=== PATIENT | female | born 1985 | race Caucasian/White ===

== ENCOUNTER 2018-04-01 08:28 | Outpatient (CLI) | payer OTHER | END 2018-04-01 08:29 | disposition home or self-care (01) | LOC: BICMAMMO 08:28 | PROVIDERS: ATTEND Family Medicine | DX: N63.10 Unspecified lump in the right breast, unspecified quadrant (principal) | CPT/HCPCS: 77066; G0279 ==

== ENCOUNTER 2018-09-22 07:57 | Outpatient (CLI) | payer OTHER ==
--- NOTE | 2018-09-22 10:33 | MRI ---
BRAIN MRI WITHOUT CONTRAST: Date: 09/22/18 COMPARISON: None. HISTORY: Swollen optic nerve. TECHNIQUE: Multiplanar, multisequence MR imaging of the brain provided without contrast. FINDINGS: Optic nerves and orbital contents are not optimally assessed on this examination. If further imaging assessment of these structures is clinically warranted, a contrast enhanced MRI utilizing an orbits p rotocol is recommended. The diffusion-weighted imaging demonstrates no evidence for acute infarction. The axial gradient echo imaging demonstrates no evidence for intracranial hemorrhage. Regional bone marrow signal intensity appears unremarkable on the T1-weighted imaging. Midline struct ures appear unremarkable. There is no midline shift, mass effect, or ventricular enlargement. Orbits and globes demonstrate a grossly unremarkable noncontrast enhanced appearance. The paranasal s inuses/mastoid air cells appear well aerated. IMPRESSION: Unremarkable noncontrast enhanced brain MRI. POS: [facility]
--- NOTE | 2018-09-22 10:36 | MRI ---
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 TECHNIQUE: Inferior saturation band applied at the base of the skull. 2D [id number] coronal slab acquisition of head. Source images and 3D MIP reconstructions evaluated. FINDINGS: There is demonstration of flow-related signal in the superior sagittal sinus, torcular herophili, str aight sinus, vein of Jona, internal cerebral veins, inferior sagittal sinus, transverse sinuses, and sigmoid sinuses. IMPRESSION: Negative. No evidence of dural venous sinus thrombosis. POS: [facility]
== END 2018-09-22 07:58 | disposition home or self-care (01) ==
LOC: MRI 07:57
DX: H47.093 Other disorders of optic nerve, not elsewhere classified, bilateral (principal)
CPT/HCPCS: 70544; 70551

== ENCOUNTER 2018-10-03 07:02 | Day surgery (SDC) | payer OTHER ==
[2018-10-02 16:29] VITALS: BMI 30.2
[2018-10-03 07:44] LABS: BHCG - Serum Negative (NEGATIVE); Pregs Control Background? CLEAR/WHITE (CLR/WHITE); Pregs Control Bar Appear? YES (CONTROL BAR)
[2018-10-03 08:10] VITALS: BP 162/91; TEMP 98.4
[2018-10-03 09:31] LABS: CSF Source CSF; Clarity Clear (Clear); RBC Count - Manual 0 /cumm (None Seen); Tube # 4; WBC/NonHematics Count - Manual 0 /cumm (0-5)
[2018-10-03 09:42] LABS: CSF, Glucose 48 mg/dl (40-70); CSF, Protein 29 mg/dL (15-40)
[2018-10-03 09:44] LABS: Color Of CSF Supernatant COLORLESS (Colorless); Unspun CSF Color COLORLESS (Colorless)
[2018-10-03 09:45] LABS: Tube # 2
--- NOTE | 2018-10-03 09:45 | RAD ---
FLUOROSCOPIC GUIDED LUMBAR PUNCTURE: CLINICAL HISTORY: Idiopathic intracranial hypertension. Papilledema. A 32-year-old female. PROCEDURE: Informed consent was obtained. The patient was escorted to the procedural suite. S[employer] As[employer]er images were obtained The patient was placed in the prone position. The skin and soft tissues overlying the lumb ar spine. A left interlaminar approach at the L2-3 level was selected. Using a 20-gauge needle, une ventful access was achieved into the thecal sac subsequent to standard sterile prepping and draping a nd topical anesthesia. Clear colorless CSF was present at the needle hub. CSF opening pressure was measured. This measures approximately 17 cm h2O. Subsequently, approximately 14 cc of clear colorle ss CSF was acquired into 4 separate sealed containers which were sent to the laboratory for further a nalysis. No procedural complications. IMPRESSION: 1. Technically successful lumbar puncture yielding clear colorless cerebrospinal fluid which was sen t to the laboratory for further analysis. 2. Opening pressure: 17 cm H2O. POS: [facility]
== END 2018-10-03 10:15 | disposition home or self-care (01) ==
LOC: RAD 07:02
PROC: 009U3ZX Drainage of Spinal Canal, Percutaneous Approach, Diagnostic (ICD-10-PCS; principal; 2018-10-03)
DX: G93.2 Benign intracranial hypertension (principal); H47.10 Unspecified papilledema
CPT/HCPCS: 62270; 82945; 84157; 84703; 87070; 87205; 89051

== ENCOUNTER 2018-10-06 11:21 | Emergency (ER) | payer OTHER ==
[2018-10-06] MEDS ORDERED: Acetaminophen 500 MG TAB ONE (11:31)
[2018-10-06] MEDS ORDERED: diphenhydrAMINE 50 MG/ML VIAL ONE (11:31)
[2018-10-06] MEDS ORDERED: Metoclopramide HCl 10 MG/2 ML VIAL ONE (11:31)
== END 2018-10-06 13:23 | disposition admitted as inpatient to this hospital (09) ==
LOC: ERS 11:21
DX: G97.1 Other reaction to spinal and lumbar puncture (principal); F32.9 Major depressive disorder, single episode, unspecified
CPT/HCPCS: 62272; 96365; 96375; J1200; J2765